=== PATIENT | male | born 1950 | race Caucasian/White ===

== ENCOUNTER → 2018-11-10 | Outpatient (REF) | payer MEDICARE, OTHER ==
[~2018-11-10] MED LIST: CARVEDILOL6.25 MG PO; ECOTRIN LOW STR81 MG; EQL ASPIRIN325 MG PO; FENOFIBRATE145 MG PO; GABAPENTIN100 MG PO; LISINOPRIL5 MG PO; NITROSTAT0.4 MG SL; STOOL SOFTE1 PO; TENORMIN PO; TENORMIN25 M1 PO; TRICOR145 MG PO; VYTORIN1 TA2 PO
== END | disposition home or self-care (01) ==
LOC: MRI 11-08 13:00
PROVIDERS: ATTEND Nurse Practitioner Family
DX: M54.5 Low back pain (principal); M54.16 Radiculopathy, lumbar region; M43.26 Fusion of spine, lumbar region; Z98.890 Other specified postprocedural states

== ENCOUNTER 2018-12-02 20:08 | Observation (INO) | payer MEDICARE, OTHER ==
[~2018-12-02] VITALS: Ht 177.8 cm; Wt 80.9 kg
[~2018-12-02 20:08] MED LIST changes: -CARVEDILOL6.25 MG PO; -ECOTRIN LOW STR81 MG; -GABAPENTIN100 MG PO; -NITROSTAT0.4 MG SL; -TRICOR145 MG PO
--- NOTE | 2018-12-02 20:15 | NUR ---
PT TRIAGED, PT REPORTS SOME CHANGE IN CHEST SENSATION WHILE IN TRIAGE, IMMEDIATELY TAKEN TO ROOM VIA WC. EKG PERFORMED AND DR YO NOTITFIED OF PT STATUS.
--- NOTE | 2018-12-02 20:30 | NUR ---
PT STATES THAT HE BEGAN HAVING INTERMITTENT CHEST TINGLING THAT STARTED THIS MORNING. PT STATES THAT HE FEELS NUMBNESS IN HIS LEFT CHEST WALL THAT RADIATES DOWN THE LEFT ARM. PT IS AOX4, DENIES ANY SOB, N/V OR WEAKNESS.
[2018-12-02] MEDS ORDERED: TRICOR145 MG PO (20:38)
[2018-12-02] MEDS ORDERED: GABAPENTIN100 MG PO (20:39)
[2018-12-02] MEDS ORDERED: CARVEDILOL6.25 MG PO (20:39)
[2018-12-02] MEDS ORDERED: ECOTRIN LOW STR81 MG (20:40)
[2018-12-02 20:44] LABS: HEMATOCRIT 44.7 % (39.0-50.0); HEMOGLOBIN 14.4 g/dl (14.0-18.0); IMMATURE GRANULOCYTES 0.4 % (0.0-5.0); MEAN CELL VOLUME 96.1 fL CALC (80.0-100.0); MEAN CORPUSCULAR HGB CONC 32.2 g/L CALC (32.0-36.0); NEUT# 4.66 thou/uL (1.82-7.42); RED BLOOD COUNT 4.65 mill/uL (4.70-6.10); RED CELL DISTRI WIDTH 13.3 % (11.5-15.5)
[2018-12-02 20:58] LABS: ALBUMIN 4.4 g/dL (3.2-5.0); ALKALINE PHOSPHATASE 50 u/l (38-126); ANION GAP 15 (6-22 (CALC)); BILIRUBIN, TOTAL 0.5 mg/dL (0.0-1.4); BUN 20 mg/dL (8-23); BUN/CREATININE RATIO 14 (12-20 (CALC)); CARBON DIOXIDE 27 mmol/l (22-30); CHLORIDE 101 mmol/l (95-108); CREATININE 1.5 mg/dL (0.7-1.3); GFR 46 ML/MIN (>=60 (CALC)); GFR FOR AFR.AMER. 56 ML/MIN (>=60 (CALC)); POTASSIUM 4.2 mmol/l (3.5-5.1); SGOT/AST 31 u/l (19-48); SODIUM 139 mmol/l (137-146); TOTAL PROTEIN 7.2 g/dL (6.3-8.2)
[2018-12-02 21:10] LABS: MYOGLOBIN 143 ng/mL (0 - 121)
--- NOTE | 2018-12-02 21:12 | NUR ---
REPORT GIVEN TO IWONA AGUAYO
--- NOTE | 2018-12-02 21:20 | NUR ---
RECEIVED REPORT FROM DEDE DALTON. ASSUMED CARE OF PT. PT RESTING ON STRETCHER, VSS. PT DENIES ANY PAIN OR PRESSURE IN CHEST, DENIES SOB. AT BEDSIDE. CAOL LIGHT IN REACH.
--- NOTE | 2018-12-02 22:28 | NUR ---
REPORT PROVIDED TO BESSIE BARKER
[2018-12-02 22:35] VITALS: BP 124/71
--- NOTE | 2018-12-02 22:40 | NUR ---
PT TO [facility] IN STABLE CONDITION VIA WC.
--- NOTE | 2018-12-02 22:45 | NUR ---
PT ARRIVES ONTO THE FLOOR VIA WHEEL CHAIR WITH ER STAFF IN STABLE CONDITION. PT TRANSFERS TO STANDING SCALE WITH 1 ASSIST HAS UNSTEADY GAIT TO TO STATED HIP SURGERY AND USES A CANE AT HOME, BUT DOES NOT HAVE IT HERE. PT ORIENTED TO ROOM AND CALL [employer]. ASSESMENT COMPLETED A THIS TIME. PT HAVING NO PAIN CUURENTLY. ASKED FRO URINE SAMPLE WHEN ABLE. ADVISED TO CALL WHEN HE NEEDS HELP. CALL [facility] IN REACH. WILL CONTINUE TO MONITOR.
[2018-12-02 23:44] VITALS: BP 114/62
[2018-12-03 00:45] LABS: URINE BILIRUBIN - DIPSTICK NEGATIVE (NEGATIVE); URINE BLOOD DIPSTICK NEGATIVE (NEGATIVE); URINE COLOR YELLOW; URINE GLUCOSE - DIPSTICK NEGATIVE (NEGATIVE); URINE KETONE NEGATIVE (NEGATIVE); URINE LEUK ESTERASE NEGATIVE (NEGATIVE); URINE NITRITE - DIPSTICK NEGATIVE (Negative); URINE PH 6.5 (4.5-8.0); URINE PROTEIN - DIPSTICK NEGATIVE (NEG-TRACE); URINE UROBILINOGEN - DIPSTICK 0.2 E.U./dL (0.2)
--- NOTE | 2018-12-03 03:48 | NUR ---
PT ASLEEP AT THIS TIME. NO S/S OF DISTRESS NOTED. CALL BEL IN REACH. WILL CONTINUE TO MONITOR
[2018-12-03 04:31] VITALS: BP 101/65
--- NOTE | 2018-12-03 05:35 | NUR ---
PT C/O HEADACHE. NITRO PATCHED REMOVED AT THIS TIME.
[2018-12-03 06:45] LABS: CHOLESTEROL HDL RATIO 2.8 (<4.4 (CALC)); MAGNESIUM 1.9 mg/dL (1.6-2.3)
[2018-12-03 07:38] VITALS: BP 123/67
--- NOTE | 2018-12-03 08:16 | NUR ---
ASSESSMENT DONE. TELE IN PLACE. PT IS A&O X3. PT DENIES ANY PAIN AT THIS TIME. 20 LAC THAT APPEARS HEALTHY. PT DENIES ANY NEEDS AT THIS TIME. SAFETY PRECAUTIONS REINFORCED AND CALL LIGHT IN REACH.
[2018-12-03 10:59] VITALS: BP 111/66
[2018-12-03] MEDS ORDERED: NITROSTAT0.4 MG SL (11:15)
--- NOTE | 2018-12-03 11:38 | NUR ---
Discharge instructions given. Patient verbalizes understanding of same. Discharged in stable condition via Wheelchair to Home with spouse. All belongings sent with pt.
== END 2018-12-03 11:35 | disposition home or self-care (01) ==
LOC: ED 20:08 → ED-I 21:33 → MS2 21:34 → ED 21:34 → MS2 22:12
PROVIDERS: Emergency Medicine; ADMIT Internal Medicine; ATTEND Internal Medicine
DX: R07.89 Other chest pain (principal); I10 Essential (primary) hypertension; I25.10 Atherosclerotic heart disease of native coronary artery without angina pectoris; E78.5 Hyperlipidemia, unspecified; R94.4 Abnormal results of kidney function studies; Z95.1 Presence of aortocoronary bypass graft; Z87.891 Personal history of nicotine dependence; R20.2 Paresthesia of skin
CPT/HCPCS: G0378

== ENCOUNTER 2018-12-25 09:52 | Emergency (ER) | payer MEDICARE, OTHER ==
[~2018-12-25] VITALS: Ht 177.8 cm; Wt 80.0 kg
[~2018-12-25 09:52] MED LIST changes: +CARVEDILOL6.25 MG PO; +ECOTRIN LOW STR81 MG; +GABAPENTIN100 MG PO; +NITROSTAT0.4 MG SL; +TRICOR145 MG PO
[2018-12-25] MEDS ORDERED: CYMBALTA20 MG PO (10:13)
[2018-12-25] MEDS ORDERED: SINGULAIR10 MG PO (10:13)
[2018-12-25 10:23] LABS: HEMATOCRIT 45.3 % (39.0-50.0); HEMOGLOBIN 15.2 g/dl (14.0-18.0); IMMATURE GRANULOCYTES 0.5 % (0.0-5.0); MEAN CELL VOLUME 94.6 fL CALC (80.0-100.0); MEAN CORPUSCULAR HGB 31.7 pG CALC (26.0-32.0); MEAN CORPUSCULAR HGB CONC 33.6 g/L CALC (32.0-36.0); NEUT# 4.39 thou/uL (1.82-7.42); RED BLOOD COUNT 4.79 mill/uL (4.70-6.10)
[2018-12-25 10:32] LABS: ALBUMIN 4.2 g/dL (3.2-5.0); ALKALINE PHOSPHATASE 48 u/l (38-126); ANION GAP 13 (6-22 (CALC)); BILIRUBIN, TOTAL 0.6 mg/dL (0.0-1.4); BUN 15 mg/dL (8-23); BUN/CREATININE RATIO 15 (12-20 (CALC)); CARBON DIOXIDE 27 mmol/l (22-30); CHLORIDE 104 mmol/l (95-108); GFR > 60 ML/MIN (>=60 (CALC)); GFR FOR AFR.AMER. > 60 ML/MIN (>=60 (CALC)); POTASSIUM 4.4 mmol/l (3.5-5.1); SGOT/AST 23 u/l (19-48); SODIUM 139 mmol/l (137-146); TOTAL PROTEIN 6.9 g/dL (6.3-8.2)
[2018-12-25 10:43] LABS: MYOGLOBIN 110 ng/mL (0 - 121)
[2018-12-25 15:01] VITALS: BP 150/81
== END 2018-12-25 15:05 | disposition home or self-care (01) ==
LOC: ED 09:52
PROVIDERS: Emergency Medicine
DX: R07.9 Chest pain, unspecified (principal); I10 Essential (primary) hypertension; Z95.1 Presence of aortocoronary bypass graft

== ENCOUNTER 2023-10-03 14:24 | Emergency (ER) | payer MEDICARE, OTHER ==
[2023-10-03] VITALS (15 sets, daily range): BP systolic 110–142; BP diastolic 71–87
[~2023-10-03] VITALS: Ht 177.8 cm; Wt 83.0 kg
[~2023-10-03 14:24] MED LIST changes: +CYMBALTA20 MG PO; +SINGULAIR10 MG PO
[2023-10-03 14:49] LABS: BASO% 0.3 % (0-3); EOS% 0.7 % (0-8); HEMATOCRIT 48.3 % (39.0-50.0); HEMOGLOBIN 15.7 g/dl (14.0-18.0); IMMATURE GRANULOCYTES 0.3 % (0.0-5.0); LYMPH% 22.7 % (15-41); MEAN CELL VOLUME 97.8 fL CALC (80.0-100.0); MEAN CORPUSCULAR HGB 31.8 pG CALC (26.0-32.0); MEAN CORPUSCULAR HGB CONC 32.5 g/dL CAL (32.0-36.0); MONO% 9.2 % (2-13); NEUT# 4.72 thou/uL (1.82-7.42); NEUT% 66.8 % (42-76); RED BLOOD COUNT 4.94 mill/uL (4.70-6.10); RED CELL DISTRI WIDTH 12.8 % (11.5-15.5)
[2023-10-03 15:04] LABS: ALBUMIN 4.2 g/dL (3.2-5.0); ALKALINE PHOSPHATASE 51 u/l (38-126); ANION GAP 11 (6-22 (CALC)); BILIRUBIN, TOTAL 1.3 mg/dL (0.2-1.3); BUN 20 mg/dL (8-23); BUN/CREATININE RATIO 18 (12-20 (CALC)); CARBON DIOXIDE 26 mmol/l (22-30); CHLORIDE 102 mmol/l (95-108); CREATININE 1.1 mg/dL (0.7-1.3); GFR FOR AFR.AMER. > 60 ML/MIN (>=60 (CALC)); GFR OTHER RACES > 60 ML/MIN (>=60 (CALC)); LIPASE 90 u/l (23-300); POTASSIUM 4.5 mmol/l (3.5-5.1); SGOT/AST 30 u/l (19-48); SODIUM 134 mmol/l (137-146); TOTAL PROTEIN 7.4 g/dL (6.3-8.2)
[2023-10-03 19:06] LABS: URINE BILIRUBIN - DIPSTICK Negative (NEGATIVE); URINE BLOOD DIPSTICK Negative (NEGATIVE); URINE GLUCOSE - DIPSTICK Negative (NEGATIVE); URINE KETONE Negative (NEGATIVE); URINE LEUK ESTERASE Negative (NEGATIVE); URINE NITRITE - DIPSTICK Negative (Negative); URINE PROTEIN - DIPSTICK Negative (NEG-TRACE); URINE SPECIFIC GRAVITY <=1.005; URINE UROBILINOGEN - DIPSTICK 0.2 E.U./dL (0.2)
[2023-10-03 19:07] LABS: URINE COLOR Yellow
== END 2023-10-03 18:31 | disposition home or self-care (01) ==
LOC: ED 14:24
PROVIDERS: Family Medicine
DX: R10.32 Left lower quadrant pain (principal); I10 Essential (primary) hypertension; Z95.1 Presence of aortocoronary bypass graft; Z87.19 Personal history of other diseases of the digestive system
CPT/HCPCS: Q9967